=== PATIENT | female | born 1990 | race Caucasian/White ===

== ENCOUNTER 2022-07-31 09:17 | Day surgery (SDC) | payer SELFPAY ==
[2022-07-30 16:59] VITALS: BMI 23.1
[2022-07-31] MEDS ORDERED: KETAMINE HCL 500 MG/10 ML VIAL ONE (10:44)
[2022-07-31 13:04] VITALS: RESP 18; TEMP 97.8
[2022-07-31 13:08] VITALS: BP 121/76; PULSE 91
== END 2022-07-31 13:00 | disposition home or self-care (01) ==
LOC: FECT 09:17
PROVIDERS: ATTEND Psychiatry & Neurology Psychiatry
PROC: GZB4ZZZ Other Electroconvulsive Therapy (ICD-10-PCS; principal; 2022-07-31 11:13)
DX: F33.9 Major depressive disorder, recurrent, unspecified (principal)
CPT/HCPCS: 84703; 90870; 93005; 93010; 94760

== ENCOUNTER 2022-08-01 08:59 | Day surgery (SDC) | payer SELFPAY ==
[2022-07-31 15:31] VITALS: BMI 23.1
[2022-08-01] MEDS ORDERED: KETAMINE HCL 500 MG/10 ML VIAL ONE (10:37)
[2022-08-01 11:29] VITALS: TEMP 97.9
[2022-08-01 13:03] VITALS: BP 110/71; PULSE 81; RESP 18
== END 2022-08-01 12:45 | disposition home or self-care (01) ==
LOC: FECT 08:59
PROVIDERS: ATTEND Psychiatry & Neurology Psychiatry
PROC: GZB4ZZZ Other Electroconvulsive Therapy (ICD-10-PCS; principal; 2022-08-01 11:01)
DX: F33.9 Major depressive disorder, recurrent, unspecified (principal)
CPT/HCPCS: 90870; 94760

== ENCOUNTER 2022-08-05 07:34 | Day surgery (SDC) | payer SELFPAY ==
[2022-08-01 15:50] VITALS: BMI 23.1
== END 2022-08-05 08:30 | disposition home or self-care (01) ==
LOC: FECT 07:34
PROVIDERS: ATTEND Psychiatry & Neurology Psychiatry
PROC: GZB4ZZZ Other Electroconvulsive Therapy (ICD-10-PCS; principal; 2022-08-05)
DX: Z53.8 Procedure and treatment not carried out for other reasons (principal); F31.9 Bipolar disorder, unspecified
CPT/HCPCS: 81025; C9803-CS; U0003; U0005

== ENCOUNTER 2022-08-07 08:52 | Day surgery (SDC) | payer SELFPAY ==
[2022-08-05 15:06] VITALS: BMI 23.1
[2022-08-07] MEDS ORDERED: KETAMINE HCL 500 MG/10 ML VIAL ONE (11:32)
[2022-08-07 12:09] VITALS: TEMP 97.6
[2022-08-07 12:56] VITALS: RESP 18
[2022-08-07 13:32] VITALS: BP 101/81; PULSE 96
== END 2022-08-07 13:30 | disposition home or self-care (01) ==
LOC: FECT 08:52
PROVIDERS: ATTEND Psychiatry & Neurology Psychiatry
PROC: GZB4ZZZ Other Electroconvulsive Therapy (ICD-10-PCS; principal; 2022-08-07 11:46)
DX: F31.9 Bipolar disorder, unspecified (principal)
CPT/HCPCS: 90870; 94760

== ENCOUNTER 2022-08-08 09:11 | Day surgery (SDC) | payer SELFPAY ==
[2022-08-05 15:17] VITALS: BMI 23.1
[2022-08-08 09:26] VITALS: RESP 18
[2022-08-08] MEDS ORDERED: KETAMINE HCL 500 MG/10 ML VIAL ONE (10:18)
[2022-08-08 11:40] VITALS: TEMP 97.4
[2022-08-08 12:08] VITALS: BP 128/70; PULSE 92
== END 2022-08-08 12:21 | disposition home or self-care (01) ==
LOC: FECT 09:11
PROVIDERS: ATTEND Psychiatry & Neurology Psychiatry
PROC: GZB4ZZZ Other Electroconvulsive Therapy (ICD-10-PCS; principal; 2022-08-08 10:30)
DX: F31.9 Bipolar disorder, unspecified (principal)
CPT/HCPCS: 90870; 94760; C9803-CS; U0003; U0005

== ENCOUNTER 2022-08-12 08:33 | Day surgery (SDC) | payer SELFPAY ==
[2022-08-08 15:04] VITALS: BMI 23.1
[2022-08-12] MEDS ORDERED: KETAMINE HCL 500 MG/10 ML VIAL ONE (09:26)
[2022-08-12 10:30] VITALS: RESP 18; TEMP 98
[2022-08-12 10:55] VITALS: BP 113/86; PULSE 84
== END 2022-08-12 11:20 | disposition home or self-care (01) ==
LOC: FECT 08:33
PROVIDERS: ATTEND Psychiatry & Neurology Psychiatry
PROC: GZB4ZZZ Other Electroconvulsive Therapy (ICD-10-PCS; principal; 2022-08-12 09:35)
DX: F31.9 Bipolar disorder, unspecified (principal)
CPT/HCPCS: 81025; 90870; 94760

== ENCOUNTER 2022-08-22 08:17 | Day surgery (SDC) | payer SELFPAY ==
[2022-08-19 09:08] VITALS: BMI 23.1
[2022-08-22] MEDS ORDERED: KETAMINE HCL 500 MG/10 ML VIAL ONE (09:19)
[2022-08-22] MEDS ORDERED: SUCCINYLCHOLINE CHLORIDE 200 MG/10 ML SYRINGE ONE (09:21)
[2022-08-22] MEDS ORDERED: PROPOFOL 20 ML ONE (09:21)
[2022-08-22] MEDS ORDERED: ONDANSETRON 4 MG/2 ML VIAL ONE (09:22)
[2022-08-22] MEDS ORDERED: DEXAMETHASONE SOD PHOSPHATE 4 MG/1 ML VIAL ONE (09:22)
[2022-08-22] MEDS ORDERED: KETOROLAC TROMETHAMINE 30 MG/1 ML VIAL ONE (09:22)
[2022-08-22] MEDS ORDERED: LACTATED RINGERS SOLUTION 1,000 ML IV SCH (11:15)
[2022-08-22 11:18] VITALS: RESP 18; TEMP 97.9
[2022-08-22 11:19] VITALS: BP 121/74; PULSE 94
== END 2022-08-22 11:05 | disposition home or self-care (01) ==
LOC: FECT 08:17
PROVIDERS: ATTEND Psychiatry & Neurology Psychiatry
PROC: GZB4ZZZ Other Electroconvulsive Therapy (ICD-10-PCS; principal; 2022-08-22 09:29)
DX: F31.9 Bipolar disorder, unspecified (principal)
CPT/HCPCS: 84703; 90870; 94760; C9803-CS; U0003; U0005

== ENCOUNTER 2022-08-26 06:36 | Day surgery (SDC) | payer SELFPAY ==
[2022-08-20 16:21] VITALS: BMI 23.1
[2022-08-26] MEDS ORDERED: KETAMINE HCL 500 MG/10 ML VIAL ONE (08:46)
[2022-08-26 10:20] VITALS: RESP 18
[2022-08-26 10:56] VITALS: BP 130/85; PULSE 87; TEMP 98
== END 2022-08-26 10:45 | disposition home or self-care (01) ==
LOC: FECT 06:36
PROVIDERS: ATTEND Psychiatry & Neurology Psychiatry
PROC: GZB4ZZZ Other Electroconvulsive Therapy (ICD-10-PCS; principal; 2022-08-26 08:54)
DX: F31.9 Bipolar disorder, unspecified (principal)
CPT/HCPCS: 81025; 90870; 94760; C9803-CS; U0003; U0005

== ENCOUNTER 2022-08-28 06:37 | Day surgery (SDC) | payer SELFPAY ==
[2022-08-28 07:38] VITALS: BMI 23.1
[2022-08-28] MEDS ORDERED: KETAMINE HCL 500 MG/10 ML VIAL ONE (08:37)
[2022-08-28] MEDS ORDERED: PROPOFOL 20 ML ONE (08:52)
[2022-08-28 09:35] VITALS: TEMP 98.4
[2022-08-28 10:33] VITALS: RESP 18
[2022-08-28 10:35] VITALS: BP 103/64; PULSE 88
[2022-08-28] MEDS ORDERED: ROCURONIUM BROMIDE 50 MG/5 ML SYRINGE ONE (10:35)
[2022-08-28] MEDS ORDERED: PROPOFOL 40 ML ONE (10:35)
== END 2022-08-28 10:40 | disposition home or self-care (01) ==
LOC: FECT 06:37
PROVIDERS: ATTEND Psychiatry & Neurology Psychiatry
PROC: GZB4ZZZ Other Electroconvulsive Therapy (ICD-10-PCS; principal; 2022-08-28 08:46)
DX: F31.9 Bipolar disorder, unspecified (principal)
CPT/HCPCS: 90870; 94760

== ENCOUNTER 2022-08-29 07:53 | Day surgery (SDC) | payer SELFPAY ==
[2022-08-29 08:25] VITALS: BMI 21.4
[2022-08-29] MEDS ORDERED: KETOROLAC TROMETHAMINE 30 MG/1 ML VIAL ONE (09:44)
[2022-08-29] MEDS ORDERED: DEXAMETHASONE SOD PHOSPHATE 4 MG/1 ML VIAL ONE (09:44)
[2022-08-29] MEDS ORDERED: ONDANSETRON 4 MG/2 ML VIAL ONE (09:44)
[2022-08-29] MEDS ORDERED: PROPOFOL 20 ML ONE (09:48)
[2022-08-29 11:48] VITALS: RESP 18; TEMP 98.2
[2022-08-29 11:49] VITALS: BP 101/77; PULSE 89
== END 2022-08-29 11:40 | disposition home or self-care (01) ==
LOC: FECT 07:53
PROVIDERS: ATTEND Psychiatry & Neurology Psychiatry
PROC: GZB4ZZZ Other Electroconvulsive Therapy (ICD-10-PCS; principal; 2022-08-29 10:00)
DX: F31.9 Bipolar disorder, unspecified (principal)
CPT/HCPCS: 90870; 94760; C9803-CS; U0003; U0005

== ENCOUNTER 2022-09-02 07:13 | Day surgery (SDC) | payer SELFPAY ==
[2022-09-01 07:20] VITALS: BMI 21.4
[2022-09-02] MEDS ORDERED: KETAMINE HCL 500 MG/10 ML VIAL ONE (09:42)
[2022-09-02] MEDS ORDERED: PROPOFOL 20 ML ONE (10:17)
[2022-09-02 10:53] VITALS: RESP 18; TEMP 98.2
[2022-09-02 11:12] VITALS: BP 116/72; PULSE 81
== END 2022-09-02 11:13 | disposition home or self-care (01) ==
LOC: FECT 07:13
PROVIDERS: ATTEND Psychiatry & Neurology Psychiatry
PROC: GZB4ZZZ Other Electroconvulsive Therapy (ICD-10-PCS; principal; 2022-09-02 09:51)
DX: F31.63 Bipolar disorder, current episode mixed, severe, without psychotic features (principal)
CPT/HCPCS: 81025; 90870; 94760; C9803-CS; U0003; U0005

== ENCOUNTER 2022-09-04 10:13 | Day surgery (SDC) | payer SELFPAY ==
[2022-09-01 07:25] VITALS: BMI 21.4
[2022-09-04] MEDS ORDERED: KETAMINE HCL 500 MG/10 ML VIAL ONE (11:18)
[2022-09-04 13:13] VITALS: RESP 16; TEMP 98.1
[2022-09-04 13:20] VITALS: BP 112/76; PULSE 105
== END 2022-09-04 13:07 | disposition home or self-care (01) ==
LOC: FECT 10:13
PROVIDERS: ATTEND Psychiatry & Neurology Psychiatry
PROC: GZB4ZZZ Other Electroconvulsive Therapy (ICD-10-PCS; principal; 2022-09-04 11:28)
DX: F31.9 Bipolar disorder, unspecified (principal)
CPT/HCPCS: 90870; 94760

== ENCOUNTER 2022-09-05 11:39 | Day surgery (SDC) | payer SELFPAY ==
[2022-09-01 07:28] VITALS: BMI 21.4
[2022-09-05] MEDS ORDERED: KETAMINE HCL 500 MG/10 ML VIAL ONE (12:37)
[2022-09-05 13:12] VITALS: RESP 18
[2022-09-05 13:36] VITALS: TEMP 98.6
[2022-09-05 13:56] VITALS: BP 104/71; PULSE 89
== END 2022-09-05 14:25 | disposition home or self-care (01) ==
LOC: FECT 11:39
PROVIDERS: ATTEND Psychiatry & Neurology Psychiatry
PROC: GZB4ZZZ Other Electroconvulsive Therapy (ICD-10-PCS; principal; 2022-09-05 12:46)
DX: F31.9 Bipolar disorder, unspecified (principal)
CPT/HCPCS: 90870; 94760; C9803-CS; U0003; U0005

== ENCOUNTER 2022-09-09 06:45 | Day surgery (SDC) | payer SELFPAY ==
[2022-09-05 15:58] VITALS: BMI 21.4
[2022-09-09] MEDS ORDERED: ONDANSETRON 4 MG/2 ML VIAL ONE (07:55)
[2022-09-09] MEDS ORDERED: KETAMINE HCL 500 MG/10 ML VIAL ONE (07:56)
[2022-09-09] MEDS ORDERED: KETOROLAC TROMETHAMINE 30 MG/1 ML VIAL ONE (07:56)
[2022-09-09] MEDS ORDERED: DEXAMETHASONE SOD PHOSPHATE 4 MG/1 ML VIAL ONE (07:56)
[2022-09-09 09:20] VITALS: RESP 16
[2022-09-09 09:42] VITALS: PULSE 96
[2022-09-09 10:00] VITALS: BP 117/62; TEMP 98.2
== END 2022-09-09 10:20 | disposition home or self-care (01) ==
LOC: FECT 06:45
PROVIDERS: ATTEND Psychiatry & Neurology Psychiatry
PROC: GZB4ZZZ Other Electroconvulsive Therapy (ICD-10-PCS; principal; 2022-09-09 08:22)
DX: F31.9 Bipolar disorder, unspecified (principal)
CPT/HCPCS: 81025; 90870; 94760; C9803-CS; U0003; U0005

== ENCOUNTER 2022-09-12 07:30 | Day surgery (SDC) | payer SELFPAY ==
[2022-09-08 11:53] VITALS: BMI 21.4
[2022-09-12] MEDS ORDERED: KETAMINE HCL 500 MG/10 ML VIAL ONE (08:39)
[2022-09-12 10:32] VITALS: RESP 20; TEMP 98
[2022-09-12 11:05] VITALS: BP 110/68; PULSE 102
== END 2022-09-12 10:50 | disposition home or self-care (01) ==
LOC: FECT 07:30
PROVIDERS: ATTEND Psychiatry & Neurology Psychiatry
PROC: GZB4ZZZ Other Electroconvulsive Therapy (ICD-10-PCS; principal; 2022-09-12 08:57)
DX: F31.9 Bipolar disorder, unspecified (principal)
CPT/HCPCS: 90870; 94760; C9803-CS; U0003; U0005

== ENCOUNTER 2022-09-23 06:30 | Day surgery (SDC) | payer SELFPAY ==
[2022-09-12 14:03] VITALS: BMI 21.4
[2022-09-23] MEDS ORDERED: ONDANSETRON 4 MG/2 ML VIAL IVPUSH PRN (07:29)
[2022-09-23] MEDS ORDERED: LACTATED RINGERS SOLUTION 1,000 ML IV SCH (07:30)
[2022-09-23] MEDS ORDERED: KETAMINE HCL 500 MG/10 ML VIAL ONE (08:00)
[2022-09-23] MEDS ORDERED: PROPOFOL 20 ML ONE (08:06)
[2022-09-23] MEDS ORDERED: SUCCINYLCHOLINE CHLORIDE 200 MG/10 ML SYRINGE ONE (08:06)
[2022-09-23] MEDS ORDERED: DEXAMETHASONE SOD PHOSPHATE 4 MG/1 ML VIAL ONE (08:07)
[2022-09-23] MEDS ORDERED: ONDANSETRON 4 MG/2 ML VIAL ONE (08:07)
[2022-09-23] MEDS ORDERED: KETOROLAC TROMETHAMINE 30 MG/1 ML VIAL ONE (08:07)
[2022-09-23 09:31] VITALS: RESP 18
[2022-09-23 09:41] VITALS: BP 108/72; PULSE 84; TEMP 98
== END 2022-09-23 09:45 | disposition home or self-care (01) ==
LOC: FECT 06:30
PROVIDERS: ATTEND Psychiatry & Neurology Psychiatry
PROC: GZB4ZZZ Other Electroconvulsive Therapy (ICD-10-PCS; principal; 2022-09-23 08:14)
DX: F32.A Depression, unspecified (principal)
CPT/HCPCS: 81025; 90870; 94760

== ENCOUNTER 2022-09-25 06:02 | Day surgery (SDC) | payer SELFPAY ==
[2022-09-08 11:49] VITALS: BMI 21.4
[2022-09-25] MEDS ORDERED: KETAMINE HCL 500 MG/10 ML VIAL ONE (07:25)
[2022-09-25] MEDS ORDERED: PHENYLEPHRINE HCL 10 MG/1 ML SINGLE DOSE VIAL ONE (07:43)
[2022-09-25] MEDS ORDERED: SUCCINYLCHOLINE CHLORIDE 200 MG/10 ML SYRINGE ONE (07:43)
[2022-09-25] MEDS ORDERED: LIDOCAINE HCL/PF 2% SDV 5ML VIAL ONE (07:44)
[2022-09-25 09:09] VITALS: RESP 18
[2022-09-25] MEDS ORDERED: ONDANSETRON 4 MG/2 ML VIAL IVPUSH PRN (10:31)
[2022-09-25 10:36] VITALS: TEMP 98
[2022-09-25] MEDS ORDERED: LACTATED RINGERS SOLUTION 1,000 ML IV SCH (10:45)
[2022-09-25 11:21] VITALS: BP 105/67; PULSE 79
== END 2022-09-25 09:30 | disposition home or self-care (01) ==
LOC: FECT 06:02
PROVIDERS: ATTEND Psychiatry & Neurology Psychiatry
PROC: GZB4ZZZ Other Electroconvulsive Therapy (ICD-10-PCS; principal; 2022-09-25 07:51)
DX: F31.9 Bipolar disorder, unspecified (principal)
CPT/HCPCS: 90870; 94760

== ENCOUNTER 2022-10-02 09:09 | Day surgery (SDC) | payer SELFPAY ==
[2022-10-02 09:48] VITALS: BMI 21.4
[2022-10-02] MEDS ORDERED: KETAMINE HCL 500 MG/10 ML VIAL ONE (11:06)
[2022-10-02] MEDS ORDERED: SUCCINYLCHOLINE CHLORIDE 200 MG/10 ML SYRINGE ONE (11:07)
[2022-10-02 13:18] VITALS: BP 116/68; PULSE 78; RESP 17; TEMP 97.9
== END 2022-10-02 12:55 | disposition home or self-care (01) ==
LOC: FECT 09:09
PROVIDERS: ATTEND Psychiatry & Neurology Psychiatry
PROC: GZB4ZZZ Other Electroconvulsive Therapy (ICD-10-PCS; principal; 2022-10-02 11:12)
DX: F31.9 Bipolar disorder, unspecified (principal)
CPT/HCPCS: 81025; 90870; 94760

== ENCOUNTER 2022-10-16 09:24 | Day surgery (SDC) | payer SELFPAY ==
[2022-10-10 08:04] VITALS: BMI 21.4
[2022-10-16] MEDS ORDERED: KETAMINE HCL 500 MG/10 ML VIAL ONE (10:10)
[2022-10-16 10:44] VITALS: RESP 18
[2022-10-16 11:12] VITALS: PULSE 95; TEMP 98.4
[2022-10-16 11:34] VITALS: BP 118/70
== END 2022-10-16 11:34 | disposition home or self-care (01) ==
LOC: FECT 09:24
PROVIDERS: ATTEND Psychiatry & Neurology Psychiatry
PROC: GZB4ZZZ Other Electroconvulsive Therapy (ICD-10-PCS; principal; 2022-10-16 10:18)
DX: F31.9 Bipolar disorder, unspecified (principal)
CPT/HCPCS: 81025; 90870; 94760

== ENCOUNTER 2022-10-31 06:50 | Day surgery (SDC) | payer SELFPAY ==
[2022-10-31 07:10] VITALS: BMI 21.4
[2022-10-31] MEDS ORDERED: KETAMINE HCL 500 MG/10 ML VIAL ONE (08:17)
[2022-10-31] MEDS ORDERED: PROPOFOL 20 ML ONE (08:28)
[2022-10-31 09:23] VITALS: TEMP 98.1
[2022-10-31 10:14] VITALS: BP 118/81; PULSE 79; RESP 18
== END 2022-10-31 10:16 | disposition home or self-care (01) ==
LOC: FECT 06:50
PROVIDERS: ATTEND Psychiatry & Neurology Psychiatry
PROC: GZB4ZZZ Other Electroconvulsive Therapy (ICD-10-PCS; principal; 2022-10-31 08:30)
DX: F32.A Depression, unspecified (principal)
CPT/HCPCS: 81025; 90870; 94760